=== PATIENT | female | born 1985 | race Caucasian/White ===

== ENCOUNTER 2024-04-27 11:28 | Emergency (ER) | payer OTHER ==
[2024-04-27 11:53] VITALS: BP 130/70; O2SAT 100
--- NOTE | 2024-04-27 12:14 | ED Physician Documentation ---
History of Present Illness - Stated complaint Stated Complaint: MED REFILL - Chief complaint Chief Complaint: General - History obtained from History obtained from: Patient - History of Present Illness Timing: Today Pain level max: 0 Pain level now: 0 - Additonal information Additional information: 38-year-old female recently moved to the [place]. Does not have a primary care provider. Out of her medications, requesting refills. Currently asymptomatic. PD PAST MEDICAL HISTORY - Past Medical History Past Medical History: Yes Psych: Depression, Anxiety - Past Surgical History Past Surgical History: No - Present Medications Home Medications: Ambulatory Orders Medication Instructions Recorded Confirmed Fluoxetine HCl [Prozac] 40 mg PO DAILY #30 cap 04/27/24 Gabapentin [Neurontin] 300 mg PO DAILY #30 cap 04/27/24 Quetiapine Fumarate [Seroquel Xr] 150 mg PO QPM #30 tab 04/27/24 cloNIDine [Catapres] 0.5 mg PO DAILY #150 tablet 04/27/24 - Allergies Allergies/Adverse Reactions: Allergies Allergy/AdvReac Type Severity Reaction Status Date / Time No Known Drug Allergies Allergy Verified 04/27/24 11:34 - Social History Does the pt smoke?: No Smoking Status: Never smoker Does the pt drink ETOH?: No Does the pt have substance abuse?: No - Immunizations Immunizations are current?: Yes PD ED PE NORMAL - Vitals Vital signs reviewed: Yes - General General: Alert and oriented X 3, No acute distress - HEENT HEENT: Moist mucous membranes - Derm Derm: Warm and dry - Neuro Neuro: Alert and oriented X 3 Results - Vitals Vitals: Vital Signs - 24 hr 04/27/24 11:34 Temperature 36.7 C Heart Rate 89 Respiratory 16 Rate Blood Pressure 130/70 O2 Saturation 100 PD Medical Decision Making - ED course Complexity details: considered differential, d/w patient ED course: Medication refills given to the patient. No emergency medical condition at this time. Recommend she follow-up with the walk-in clinic if she is unable to do establish with a PCP. This document was made in part using voice recognition software. While efforts are made to proofread this document, sound alike and grammatical errors may occur. Departure - Departure Disposition: 01 Home, Self Care Clinical Impression: Medication refill Condition: Good Follow-Up: Primary/Walk In [place] [Provider Group] [facility] [place] [Provider Group] [facility] [place] [Provider Group] [facility] [place] [Provider Group] Prescriptions: cloNIDine [Catapres] 0.5 mg PO DAILY #150 tablet Gabapentin [Neurontin] 300 mg PO DAILY #30 cap Fluoxetine HCl [Prozac] 40 mg PO DAILY #30 cap Quetiapine Fumarate [Seroquel Xr] 150 mg PO QPM #30 tab Comments: Your prescriptions were sent to [facility] in [place]. Please follow-up with your doctor for further care. Alternatively you can follow-up with the walk-in clinics as well for any further medication refill. Forms: PCP List
== END 2024-04-27 12:15 | disposition home or self-care (01) ==
LOC: ED 11:28
DX: Z76.0 Encounter for issue of repeat prescription (principal); F32.A Depression, unspecified; F41.9 Anxiety disorder, unspecified
CPT/HCPCS: 99281; 99282

== ENCOUNTER 2024-09-26 01:07 | Observation (INO) ==
[2024-09-26 01:33] LABS: BASOPHILS % (AUTO) 0.4 %; EOSINOPHILS % (AUTO) 0.1 %; HCT - HEMATOCRIT 32.7 % (37.0-47.0); HGB - HEMOGLOBIN 11.1 g/dL (12.0-16.0); LYMPHOCYTES # (AUTO) 1.4 10^3/uL (1.5-3.5); LYMPHOCYTES % (AUTO) 17.3 %; MEAN CORPUSCULAR HEMOGLOBIN 30.3 pg (27.0-31.0); MEAN CORPUSCULAR HGB CONC 33.9 g/dL (32.0-36.0); MEAN CORPUSCULAR VOLUME 89.3 fL (81.0-99.0); MEAN PLATELET VOLUME 8.8 fL (7.9-10.8); MONOCYTES # (AUTO) 0.4 10^3/uL (0.0-1.0); MONOCYTES % (AUTO) 5.4 %; NEUTROPHILS % (AUTO) 76.7 %; PLT - PLATELET COUNT 175 10^3/uL (130-450); RED BLOOD COUNT 3.66 10^6/uL (4.20-5.40); RED CELL DISTRIBUTION WIDTH 12.7 % (12.0-15.0); WHITE BLOOD COUNT 7.8 x10^3/uL (4.8-10.8)
[2024-09-26 01:50] LABS: MAGNESIUM 1.6 mg/dL (1.7-2.3)
[2024-09-26 01:52] LABS: BILIRUBIN,URINE NEGATIVE (NEGATIVE); GLUCOSE, URINE (UA) NEGATIVE (NEGATIVE); KETONES,URINE (UA) TRACE mg/dL (NEGATIVE); LEUKOCYTE ESTERASE, URINE NEGATIVE (NEGATIVE); NITRITE,URINE NEGATIVE (NEGATIVE); OCCULT BLOOD,URINE NEGATIVE (NEGATIVE); PROTEIN,URINE TRACE mg/dL (NEGATIVE); UROBILINOGEN,URINE 0.2 (NORMAL) E.U./dL (NORMAL)
[2024-09-26 01:55] LABS: CLARITY,URINE CLEAR (CLEAR); HCG UR QUAL NEGATIVE
[2024-09-26 01:57] LABS: ACETAMINOPHEN 0.2 ug/mL; ALBUMIN 3.5 g/dL (3.2-5.5); ALBUMIN/GLOBULIN RATIO 1.3 (1.0-2.2); ALKALINE PHOSPHATASE 55 IU/L (42-121); ALT ALANINE AMINOTRANSFERASE 30 IU/L (10-60); AST ASPARTATE AMINOTRANSFERASE 57 IU/L (10-42); BILIRUBIN,TOTAL 0.5 mg/dL (0.2-1.0); BUN - BLOOD UREA NITROGEN 7 mg/dL (6-20); CALCIUM 8.5 mg/dL (8.5-10.3); CARBON DIOXIDE - CO2 26 mmol/L (21-32); CHLORIDE 106 mmol/L (101-111); CREATININE 0.6 mg/dL (0.6-1.3); ETOH - ETHANOL < 10.0 mg/dL; GFR - MDRD 112 (>89); GLUCOSE 107 mg/dL (74-104); LIPASE 15 U/L (11-82); POTASSIUM 2.9 mmol/L (3.5-4.5); SODIUM 141 mmol/L (135-145); TOTAL PROTEIN 6.1 g/dL (6.4-8.9)
[2024-09-26 02:03] LABS: THYROID STIMULATING HORMONE 3.53 uIU/mL (0.34-5.60)
[2024-09-26 02:04] LABS: AMPHETAMINE SCREEN,URINE POSITIVE (NEGATIVE); BARBITURATE SCREEN,UR NEGATIVE (NEGATIVE); BENZODIAZEPINES SCREEN, URINE POSITIVE (NEGATIVE); BUPRENORPHINE SCREEN, URINE NEGATIVE (NEGATIVE); COCAINE SCREEN URINE NEGATIVE (NEGATIVE); METHADONE SCREEN, URINE NEGATIVE (NEGATIVE); METHAMPHETAMINES SCREEN, URINE POSITIVE (NEGATIVE); OPIATE SCREEN, URINE NEGATIVE (NEGATIVE); OXYCODONE SCREEN, URINE NEGATIVE (NEGATIVE); THC CANNABINOID SCREEN, URINE POSITIVE (NEGATIVE); TRICYCLIC ANTIDEPRESSANT,URINE POSITIVE (NEGATIVE)
[2024-09-26 02:11] LABS: CK- CREATINE KINASE 2906 IU/L (30-223)
[2024-09-26 02:12] LABS: SALICYLATE < 1.5 mg/dL
--- NOTE | 2024-09-26 03:02 | ED Physician Documentation ---
History of Present Illness Stated complaint Stated Complaint: HALLUCINATIONS Chief complaint Chief Complaint: MHE History obtained from History obtained from: Patient Additonal information Additional information: 39yF with pmh bipolar and anxiety, seen here yesterda, presents with AMS tonight, stating she is having visual hallucinations. further history limited by patient ams Meds/Allgy Home Medications Ambulatory Orders Medication Instructions Recorded Confirmed hydroxyzine HCl 25 mg tablet 25 mg PO TID PRN anxiety #20 tabs 09/25/24 09/26/24 quetiapine 200 mg tablet (Seroquel) 200 mg PO DAILY #14 tabs 09/25/24 09/26/24 Allergies Allergies Allergy/AdvReac Type Severity Reaction Status Date / Time sulfamethoxazole (From Allergy Intermediate Rash Verified 09/26/24 01:29 Bactrim) trimethoprim (From Bactrim) Allergy Intermediate Rash Verified 09/26/24 01:29 [facility] Medical History Medical History (Updated 09/26/24 @ 03:[address] MD) Acute delirium Depression Bipolar 1 disorder Social History Social History (Updated 09/24/24 @ 10:54 by Eliezer Elena RN) Smoking Status: Never smoker Do you vape?: Yes Living arrangement: At home Living Condition: With family Relationship: Level: Independent Do you feel safe in your home environment?: Yes Suffered physical, verbal, emotional, or financial abuse?: No History of Abuse: No Frequency: Occasional Substance Use: cannabis (any form) POLST Patient has POLST: No Exam Constitutional normal general appearance, no apparent distress and average body habitus HENMT normocephalic and head/scalp atraumatic Eyes PERRL Neck/C-Spine visual inspection normal Respiratory breath sounds equal bilaterally, normal respiratory effort and clear to auscultation bilaterally Cardiovascular normal heart rate noted and regular rhythm noted Gastrointestinal abdomen normal to inspection Psychiatry bizarre affect Results Vitals Vitals: Vital Signs - 24 hr 09/25/24 13:01 09/26/24 01:10 09/26/24 02:39 Temperature 37.1 C 36.4 C L Temperature Source Temporal Artery Scan Temporal Artery Scan Pulse Rate 128 H 114 H Respiratory Rate 18 16 Blood Pressure 126/91 H 141/102 H O2 Saturation 94 94 O2 Source Room air Room air Room air Pain Intensity 0 0 0 Oxygen O2 Source Room air Labs Labs: Laboratory Tests 09/26/24 09/26/24 01:24 01:26 WBC 7.8 RBC 3.66 L Hgb 11.1 L Hct 32.7 L MCV 89.3 MCH 30.3 MCHC 33.9 RDW 12.7 Plt Count 175 MPV 8.8 Neut # (Auto) 6.0 Lymph # (Auto) 1.4 L Dicks[place] # (Auto) 0.4 Eos # (Auto) 0.0 Baso # (Auto) 0.0 Absolute Nucleated RBC 0.00 Nucleated RBC % 0.0 Sodium 141 Potassium 2.9 L Chloride 106 Carbon Dioxide 26 Anion Gap 9.0 BUN 7 Creatinine 0.6 Estimated GFR (MDRD) 112 Glucose 107 H Calcium 8.5 Magnesium 1.6 L Total Bilirubin 0.5 AST 57 H ALT 30 Alkaline Phosphatase 55 Total Creatine Kinase 2906 H* Total Protein 6.1 L Albumin 3.5 Globulin 2.6 Albumin/Globulin Ratio 1.3 Lipase 15 TSH 3.53 Urine Color YELLOW Urine Clarity CLEAR Urine pH 6.0 Ur Specific [place] 1.025 Urine Protein TRACE Urine Glucose (UA) NEGATIVE Urine Ketones TRACE Urine Occult Blood NEGATIVE Urine Nitrite NEGATIVE Urine Bilirubin NEGATIVE Urine Urobilinogen 0.2 (NORMAL) Ur Leukocyte Esterase NEGATIVE Ur Microscopic Review NOT INDICATED Urine Culture Comments NOT INDICATED Urine HCG, Qual NEGATIVE Salicylates < 1.5 Urine Opiates Screen NEGATIVE Ur Buprenorphine Scrn NEGATIVE Ur Oxycodone Screen NEGATIVE Urine Methadone Screen NEGATIVE Acetaminophen 0.2 Ur Barbiturates Screen NEGATIVE Ur Tricyclics Screen POSITIVE H Ur Phencyclidine Scrn NEGATIVE Ur Amphetamine Screen POSITIVE H U Methamphetamines Scrn POSITIVE H U Benzodiazepines Scrn POSITIVE H Urine Cocaine Screen NEGATIVE U Cannabinoids Screen POSITIVE H Ur Drug Screen Comment CUTOFF CONC BELOW: Ethyl Alcohol < 10.0 PD Medical Decision Making ED course ED course: 39yF p/w acute rhabdomyloisis in setting of meth use with concurrent ams/visual hallucinations. patient also hypokalemic. plan to admit for fluids and electrolyte replacement. Discharge Plan Discharge Patient Disposition: 66 [facility] DC/Xfer Condition: Stable Clinical Impression: Methamphetamine use, Visual hallucinations, Rhabdomyolysis Prescriptions: No Action quetiapine [Seroquel] 200 mg tablet 200 mg PO DAILY Qty: 14 0RF hydroxyzine HCl 25 mg tablet 25 mg PO TID PRN (Reason: anxiety) Qty: 20 0RF Print Language: Maltese Stand Alone Forms: PCP List
[2024-09-26] MEDS ORDERED: BENZONATATE 100 MG CAPSULE PO PRN (03:46)
[2024-09-26] MEDS ORDERED: MORPHINE 10 MG/ML VIAL IVP PRN (03:46)
--- NOTE | 2024-09-26 03:51 | HISTORY & PHYSICAL EXAMINATION ---
Chief Complaint Chief Complaint Chief Complaint: ams / confusion History of Present Illness History Obtained From Records Reviewed: ed charting History obtained from: ed charting and ed staff Exam Limitations: IT cart connection issues - please refer to ed charting for further details History of Present Illness HPI Comment/Other: pt with h/o bipolar and anxiety presents with visual hallucinations and ams. limited details d/t ams. h/o meth, bzd, cannabis usage. Review of Systems per ed charting [facility] Medical History Medical History (Updated 09/26/24 @ 03:[address] MD) Acute delirium Depression Bipolar 1 disorder Social History Social History (Updated 09/24/24 @ 10:54 by Eliezer Elena RN) Smoking Status: Never smoker Do you vape?: Yes Living arrangement: At home Living Condition: With family Relationship: Level: Independent Do you feel safe in your home environment?: Yes Suffered physical, verbal, emotional, or financial abuse?: No History of Abuse: No Frequency: Occasional Substance Use: cannabis (any form) POLST Patient has POLST: No Meds/Allgy Home Medications Ambulatory Orders Medication Instructions Recorded Confirmed hydroxyzine HCl 25 mg tablet 25 mg PO TID PRN anxiety #20 tabs 09/25/24 09/26/24 quetiapine 200 mg tablet (Seroquel) 200 mg PO DAILY #14 tabs 09/25/24 09/26/24 Allergies Allergies Allergy/AdvReac Type Severity Reaction Status Date / Time sulfamethoxazole (From Allergy Intermediate Rash Verified 09/26/24 01:29 Bactrim) trimethoprim (From Bactrim) Allergy Intermediate Rash Verified 09/26/24 01:29 Conclusion/Plan Problem List (1) Rhabdomyolysis: (2) Visual hallucinations: (3) Psychosis: Plan pt with - - rhabdomyolysis in setting of polysubstance abuse + volume depletion preserved renal function IVF, monitor CK levels - hypomagnesemia + hypokalemia in setting of rhabdomyolysis + drug abuse replete - toxic, metabolic encephalopathy drug abuse + bipolar daron monitor for now continue home meds neuro checks no focal deficits at this time - polysubstance abuse contributory to above further complicated by co-morbid bipolar + anxiety will benefit from drug rehab / counseling f/u labs, neuro checks, ck further orders per clinical course Lab Results 09/26/24 01:26 09/26/24 01:26
[2024-09-26] MEDS: SODIUM CHLORIDE 0.9% 500 ML IV ONE ×2 (04:00→12:42)
[2024-09-26] MEDS: LORazepam 2 MG/ML VIAL IVP STA (04:07)
[2024-09-26] MEDS ORDERED: MAGNESIUM SULFATE 2 GRAM 2 GM/50 ML BAG IV ONE (04:09)
[2024-09-26 04:15] LABS: BASOPHILS % (AUTO) 0.3 %; EOSINOPHILS % (AUTO) 0.3 %; HCT - HEMATOCRIT 32.5 % (37.0-47.0); HGB - HEMOGLOBIN 10.9 g/dL (12.0-16.0); LYMPHOCYTES # (AUTO) 1.4 10^3/uL (1.5-3.5); LYMPHOCYTES % (AUTO) 19.5 %; MEAN CORPUSCULAR HEMOGLOBIN 30.5 pg (27.0-31.0); MEAN CORPUSCULAR HGB CONC 33.5 g/dL (32.0-36.0); MEAN PLATELET VOLUME 9.8 fL (7.9-10.8); MONOCYTES # (AUTO) 0.4 10^3/uL (0.0-1.0); MONOCYTES % (AUTO) 5.3 %; NEUTROPHILS # (AUTO) 5.5 10^3/uL (1.5-6.6); NEUTROPHILS % (AUTO) 74.5 %; PLT - PLATELET COUNT 181 10^3/uL (130-450); RED BLOOD COUNT 3.57 10^6/uL (4.20-5.40); RED CELL DISTRIBUTION WIDTH 12.7 % (12.0-15.0); WHITE BLOOD COUNT 7.3 x10^3/uL (4.8-10.8)
[2024-09-26] MEDS: POTASSIUM CHLOR 10 MEQ/100 ML 10 MEQ/100 ML BAG IV STA (04:16)
[2024-09-26] MEDS: MAGNESIUM SULFATE 2 GRAM 2 GM/50 ML BAG IV ONE (04:30)
[2024-09-26 04:38] LABS: ALBUMIN 3.4 g/dL (3.2-5.5); ALBUMIN/GLOBULIN RATIO 1.5 (1.0-2.2); ALKALINE PHOSPHATASE 54 IU/L (42-121); ALT ALANINE AMINOTRANSFERASE 28 IU/L (10-60); AST ASPARTATE AMINOTRANSFERASE 53 IU/L (10-42); BILIRUBIN,TOTAL 0.5 mg/dL (0.2-1.0); BUN - BLOOD UREA NITROGEN 6 mg/dL (6-20); CALCIUM 8.3 mg/dL (8.5-10.3); CARBON DIOXIDE - CO2 26 mmol/L (21-32); CHLORIDE 106 mmol/L (101-111); CHOL/HDL RATIO 3.2 (<4.4); CHOLESTEROL 204 mg/dL; CREATININE 0.5 mg/dL (0.6-1.3); GFR - MDRD 139 (>89); GLUCOSE 103 mg/dL (74-104); HDL CHOLESTEROL 63 mg/dL; LDL CHOLESTEROL,CALCULATED 106 mg/dL; LDL/HDL RATIO 1.7 (<4.4); MAGNESIUM 1.8 mg/dL (1.7-2.3); POTASSIUM 2.9 mmol/L (3.5-4.5); SODIUM 139 mmol/L (135-145); TOTAL PROTEIN 5.7 g/dL (6.4-8.9); TRIGLYCERIDES 173 mg/dL; VLDL CHOLESTEROL 35 mg/dL
[2024-09-26] MEDS: POTASSIUM CHLORIDE 20 MEQ/15 ML UDC PO STA (04:40)
[2024-09-26 04:46] LABS: THYROID STIMULATING HORMONE 3.34 uIU/mL (0.34-5.60)
[2024-09-26] MEDS: LORazepam 1 MG TABLET PO STA (05:05)
[2024-09-26] MEDS: KETOROLAC 15 MG/ML VIAL IVP STA ×2 (05:06→12:50)
[2024-09-26] MEDS: traZODone 50 MG TABLET PO STA (06:35)
[2024-09-26] MEDS: ACETAMINOPHEN 325 MG TABLET PO PRN (08:32)
[2024-09-26] MEDS: MULTIVITAMIN W/MINERALS TABLET PO SCH (08:32)
[2024-09-26] MEDS ORDERED: LACTATED RINGERS 1,000 ML IV SCH (09:00)
[2024-09-26] MEDS: ASCORBIC ACID 500 MG TABLET PO SCH (09:30)
[2024-09-26] MEDS: LACTOBACILLUS RHAMNOSUS GG CAPSULE PO SCH (09:30)
[2024-09-26] MEDS: POTASSIUM CHLORIDE 20 MEQ TABLET PO STA (09:30)
[2024-09-26] MEDS: SODIUM CHLORIDE 0.9% 1,000 ML IV SCH (09:31)
[2024-09-26] MEDS: LORazepam 2 MG/ML VIAL IVP PRN (09:31)
[2024-09-26] MEDS: POTASSIUM CHLOR 10 MEQ/100 ML 10 MEQ/100 ML BAG IV SCH (09:32)
[2024-09-26] MEDS: QUEtiapine 100 MG TABLET PO SCH (09:35)
[2024-09-26 11:11] LABS: ESTIMATED AVERAGE GLUCOSE 91 mg/dL (70-100); HEMOGLOBIN A1c% 4.8 % (4.27-6.07)
[2024-09-26] MEDS: HALOPERIDOL 5 MG/ML VIAL IVP ONE ×2 (12:42→18:45)
[2024-09-26] MEDS: diazePAM INJ 5 MG/ML SYRINGE IVP ONE (12:42)
--- NOTE | 2024-09-26 13:01 | PHARMACY PROGRESS NOTE ---
Best Possible Medication History Admit Date and Time: 09/26/24 0346 Home Medications Medication Instructions Recorded Confirmed Type hydroxyzine HCl 25 mg tablet 25 mg PO TID PRN anxiety #20 tabs 09/25/24 09/26/24 Rx quetiapine 200 mg tablet (Seroquel) 250 mg PO DAILY 09/26/24 09/26/24 History Processed by: Nursing Medications reviewed in ED?: Yes Medication History completed: Yes Patient Interview: Pt unable to participate [facility] Statement: As the person ultimately responsible for medication therapy, providers are able to order a medication from an existing home medication list in [facility] via the "Reconcile Routine" prior to Confirmation of that medication by network support specialist. Such practice is discouraged except when the physician, in their clinical judgment, deems that a medical need exists for a medication without regard to previous use.
[2024-09-26] MEDS ORDERED: diazePAM INJ 5 MG/ML SYRINGE IVP PRN (16:47)
[2024-09-26] MEDS: NICOTINE 21 MG PATCH TOP SCH (18:45)
[2024-09-26] MEDS: MORPHINE 2 MG/ML CARPUJECT IVP STA (18:51)
[2024-09-27] MEDS: hydrOXYzine PAMOATE 25 MG CAPSULE PO PRN (01:45)
[2024-09-27] MEDS: IBUPROFEN 400 MG TABLET PO PRN (01:45)
[2024-09-27 05:35] LABS: HCT - HEMATOCRIT 32.2 % (37.0-47.0); HGB - HEMOGLOBIN 10.5 g/dL (12.0-16.0); MEAN CORPUSCULAR HEMOGLOBIN 29.9 pg (27.0-31.0); MEAN CORPUSCULAR HGB CONC 32.6 g/dL (32.0-36.0); MEAN CORPUSCULAR VOLUME 91.7 fL (81.0-99.0); MEAN PLATELET VOLUME 10.2 fL (7.9-10.8); RED BLOOD COUNT 3.51 10^6/uL (4.20-5.40); RED CELL DISTRIBUTION WIDTH 12.9 % (12.0-15.0); WHITE BLOOD COUNT 8.1 x10^3/uL (4.8-10.8)
[2024-09-27 05:56] LABS: CALCIUM 7.9 mg/dL (8.5-10.3); CREATININE 0.5 mg/dL (0.6-1.3); POTASSIUM 3.7 mmol/L (3.5-4.5)
[2024-09-27] MEDS: SODIUM CHLORIDE 0.9% 500 ML IV ONE (07:46)
[2024-09-27] MEDS: KETOROLAC 15 MG/ML VIAL IVP STA ×2 (09:24→16:42)
--- NOTE | 2024-09-27 10:25 | PROVIDER PROGRESS NOTE ---
Subjective Subjective Subjective: Today, patient is much more cooperative and calm. She understands that she may need an inpatient psychiatric stay. She is motivated to get better. She states that she was 5 years sober from methamphetamine use, but due to recent moves, and life changes, she relapsed. She said she only smoked meth for 2 days. She would like to quit. Yesterday, she was much more agitated. She really wanted to leave and vape outside. She was explained that she cannot do this. She was given nicotine patch which seems to resolve some of her withdrawal symptoms. Current Medications Current Medications Current Medications: Current Medications Generic Name Dose Route Start Last Admin Trade Name Freq PRN Reason Stop Dose Admin Acetaminophen 325 mg 09/26/24 03:48 09/26/24 08:32 Acetaminophen 325 Mg Tablet PO 325 mg Q4H PRN Administration pain, fever Ascorbic Acid 500 mg 09/26/24 09:00 09/27/24 08:04 Ascorbic Acid 500 Mg Tablet PO 500 mg DAILY ANDREA Administration Benzonatate 100 mg 09/26/24 03:46 Benzonatate 100 Mg Capsule PO TID PRN Cough Diazepam 5 mg 09/26/24 16:47 Diazepam Inj 5 Mg/Ml Syringe IVP 09/27/24 16:46 ONCE PRN Agitation Hydroxyzine Pamoate 25 mg 09/26/24 03:45 09/27/24 01:45 Hydroxyzine Pamoate 25 Mg Capsule PO 25 mg TID PRN Administration anxiety Ibuprofen 400 mg 09/26/24 19:00 09/27/24 07:46 Ibuprofen 400 Mg Tablet PO 400 mg Q6HR PRN Administration Moderate Pain (Level 4-6) Lactobacillus Rhamnosus 1 cap 09/26/24 09:00 09/27/24 08:04 Lactobacillus Rhamnosus Gg Capsule PO 1 cap DAILY ANDREA Administration Lorazepam 2 mg 09/26/24 07:23 09/27/24 07:46 Lorazepam 2 Mg/Ml Vial IVP 2 mg Q4HR PRN Administration Agitation Melatonin 3 mg 09/26/24 03:46 Melatonin 3 Mg Tablet PO QPM PRN sleep Multivitamins/Minerals 1 tab 09/26/24 08:00 09/27/24 07:46 Multivitamin W/Minerals Tablet PO 1 tab DAILYWM ANDREA Administration Nicotine 1 patch 09/26/24 19:00 09/27/24 08:04 Nicotine 21 Mg Patch TOP 1 patch DAILY ANDREA Administration Quetiapine Fumarate 50 mg 09/27/24 21:00 Quetiapine 25 Mg Tablet PO QPM ANDREA Quetiapine Fumarate 200 mg 09/27/24 21:00 Quetiapine 100 Mg Tablet PO QPM [facility] Objective Vital Signs/Intake & Output Reviewed Vital Signs: Yes Vital Signs: Vital Signs x48h Temp Pulse Resp BP Pulse Ox O2 Flow Rate 09/27/24 08:02 97.9 F 62 19 111/77 94 0 09/27/24 04:56 98.1 F 105 H 30 H 119/82 97 Intake & Output: Intake & Output 09/24/24 09/25/24 09/26/24 09/27/24 23:59 23:59 23:59 23:59 Intake Total 2221 / 2221 780 / 780 Balance 2221 780 / 780 Weight (kg) 85 kg Objective General Appearance: positive No acute distress and Anxious Eyes Bilateral: positive Normal inspection, PERRL and EOMI ENT: positive ENT inspection nml, Pharynx nml and No signs of dehydration Neck: positive Nml inspection, Thyroid nml and No JVD Respiratory: positive Chest non-tender, No respiratory distress and Breath sounds nml; negative Wheezes, Rales or Rhonchi Cardiovascular: positive Regular rate & rhythm, No murmur and No gallop; negative Extrasystoles, Tachycardia, Systolic murmur or Diastolic murmur Abdomen: positive Non-tender, No organomegaly and Nml bowel sounds; negative Tenderness, Guarding, Hepatomegaly or Splenomegaly Back: positive Nml inspection; negative CVA tenderness (R) or CVA tenderness (L) Skin: positive Color nml, No rash, Warm, Dry, Cyanosis and Diaphoresis Extremities: positive Non-tender, Full ROM and Nml appearance Neurologic/Psychiatric: positive Oriented x3; negative Mood/affect nml (rushed speech, anxiety noted) Lab Results 09/27/24 04:33 09/27/24 04:33 Other Labs: Lab Results x24hrs 09/27/24 09/26/24 09/26/24 Range/Units 04:33 12:35 04:00 WBC 8.1 (4.8-10.8) x10^3/uL RBC 3.51 L (4.20-5.40) 10^6/uL Hgb 10.5 L (12.0-16.0) g/dL Hct 32.2 L (37.0-47.0) % MCV 91.7 (81.0-99.0) fL MCH 29.9 (27.0-31.0) pg MCHC 32.6 (32.0-36.0) g/dL RDW 12.9 (12.0-15.0) % Plt Count 195 (130-450) 10^3/uL MPV 10.2 (7.9-10.8) fL Sodium 136 (135-145) mmol/L Potassium 3.7 3.4 L (3.5-4.5) mmol/L Chloride 108 (101-111) mmol/L Carbon Dioxide 24 (21-32) mmol/L Anion Gap 4.0 L (6-13) BUN 9 (6-20) mg/dL Creatinine 0.5 L (0.6-1.3) mg/dL Estimated GFR (MDRD) 139 (>89) Glucose 94 (74-104) mg/dL Estimat Average Glucose 91 (70-100) mg/dL Hemoglobin A1c % 4.8 (4.27-6.07) % Calcium 7.9 L (8.5-10.3) mg/dL Total Creatine Kinase 980 H (30-223) IU/L Diagnostic Imaging Diagnostic Imaging Results: positive Final report reviewed Assessment/Plan Problem List (1) Rhabdomyolysis: Impression: Patient was initially very agitated, moving around a lot, running. As a result, her CPK was elevated. The highest it was on 09/24 was 5521. Today, it has downtrended to 802. Will give her 1 more bolus of IV fluids. After this, we will encourage oral rehydration. Advised to recheck a BMP and CPK in 1 week. At this time, she is medically cleared. Qualifiers: Rhabdomyolysis type: non-traumatic Qualified Code(s): M62.82 - Rhabdomyolysis (2) Visual hallucinations: Impression: Unclear if this is due to methamphetamine withdrawal versus acute psychosis in setting of her psych disorders which include schizoaffective disorder, ADD, borderline personality disorder. These are improving. On 09/24 when she was initially evaluated by telepsych, she was psychotic and manic. Initially, decision was made by DCR to detain the patient, and look for placement. Her mental status then improved. She was started on Seroquel 250 mg nightly. Will reorder telepsych eval today to determine her placement. (3) Psychosis: Impression: Patient was acutely psychotic initially. Has a history of schizoaffective disorder, ADD, borderline personality disorder. Continue Seroquel. Continue psychiatric care in the outpatient setting. Qualifiers: Psychosis type: schizoaffective disorder Schizoaffective disorder type: unspecified Qualified Code(s): F25.9 - Schizoaffective disorder, unspecified
[2024-09-27] MEDS: NICOTINE 7 MG PATCH TOP SCH (15:49)
--- NOTE | 2024-09-27 16:26 | TELEPSYCH PHYS NOTE ---
[facility] Telepsych Consult Consult Date: 09/27/24 Name of Referring Provider:: unknown Reason for Consult: A psych assessment was ordered Suicide Risk Sreening (ASQ Tool) In the past few weeks, have you wished you were ?: Yes In the past few weeks, have you felt that you or your family would be better off if you were ?: No In the past week, have you been having thoughts about killing yourself?: No Have you ever tried to kill yourself?: Yes Assessment Language: German Notes: ED NOTES 39-year-old female presents to emergency department acutely psychotic and manic. Patient is tremulous with very dilated pupils. Labs completed for further evaluation she appears to have an elevated CK of 1911 we attempted to give her some IV fluids she was willing to take oral Ativan to help with anxiety but ultimately somehow patient got a visitor as well as her backpack do not know how this happened this seemed to agitate and escalate patient's emotions which caused her to elope from the emergency department at 1257. Stat alert and code ER was called police were called and she was brought back into the emergency department around 1315 with police escort. Patient was not able to be redirected she was acutely psychotic attempting to still leave talking to different doors saying that her mom was in there and talking to people that were not in their extreme danger to herself as well as other patients. 4 point locked restraints initiated at 1320 as well as IM 2 mg Haldol and IM 25 mg Howard adryl ordered. Myself evaluated the patient at 1320 she is belligerent screaming. Talking to her mom and to stop calling CPS her mother is not here and CPS has not been involved for this ER visit at this point in time. Family members are not anymore at bedside and not allowed to be at bedside. Patient is in locked restraints and chemical restraints have been initiated. Now that patient is safe and in locked restraints because of her rhabdo and her elevation of her CK we are starting IV fluids and patient placed on monitor because of the Haldol Benadryl and Ativan. Patient continues to scream at staff. Patient was evaluated by DCR and ultimately a decision was made to detain the patient after DCR spoke with patient's mother gather more collateral information mother says that she does not feel like she can safely care for the patient if she were to return home. She is attempted to run away from home twice now andWas also found down in significant rhabdo today. Original CK level was at 1900 11 repeat CK was done 6 hours later and it has actually significantly increased to 5521. Patient has received a total of 3 L lactated ringer 1 L normal saline she has not produced any urine for us thus far. 2108 patient became significantly agitated I attempted to talk to the patient And inform her of what the plan was moving forward To help with de-escalation and patient became quite agitated she appears to be more delusional. We informed the patient that because she was detained if she tried to leave the hospital that she would be restrained again patient said that she did not care she would leave the hospital AGAINST MEDICAL ADVICE and she would rip out her IV and attempt to run away. Because of this the decision was made to chemically restrain the patient she was given 2 mg Haldol, 25 mg IV Benadryl and 1 mg IV Ativan to help with calming patient down. 2152 patient much more home after receiving 2 mg Haldol, 25 mg IV Benadryl, and 1 mg IV Ativan. Chief Complaint: Psychiatric Assessment History of Present Illness: 39 year old female with stated history of schizoaffective disorder, borderline PD, and ADHD presents today for evaluation. She's not willing to be very honest about drug use so having a trav discussion to figure out best next steps is very difficult. She reported using a 'little' meth 6 days ago. She feels that meth could have played a small part in what occurred to her. She recounts hiding and running in the [place] and remembers being quite paranoid. She is no longer paranoid. She is not manic, psychotic, depressed, suicidal or homicidal. She is not taking her psychiatric medications. She smokes THC daily. She does not use alcohol. She denies history of violence or any legal problems. She's living with her , mother, father, and child. She recently moved from [place]. She has had 'five to ten' suicide attempts in her lifetime and over 20 inpatient admissions. She reports that at baseline she will say she doesn't want to live, but denies recent plan/intent to end her life. No neurovegetative symptoms reported. Family history includes aunt with schizophrenia, father with depression and alcoholism, and another aunt with psychosis. Suicide Ideation - Homicide Ideation - Self Harm: Denies SI/Denies HI Psychiatric History - Treatment History: 20 plus IP admissions No current mental health outpatient services Community Resources Accessed: ED Family Psych History/ History of suicide: Family history includes aunt with schizophrenia, father with depression and alcoholism, and another aunt with psychosis Medication & Allergies Ambulatory Orders Medication Instructions Recorded Confirmed hydroxyzine HCl 25 mg tablet 25 mg PO TID PRN anxiety #20 tabs 09/25/24 09/26/24 quetiapine 200 mg tablet (Seroquel) 250 mg PO DAILY 09/26/24 09/26/24 Allergies Allergy/AdvReac Type Severity Reaction Status Date / Time sulfamethoxazole (From Allergy Intermediate Rash Verified 09/26/24 01:29 Bactrim) trimethoprim (From Bactrim) Allergy Intermediate Rash Verified 09/26/24 01:29 Drug & Alcohol History Use: Uses substance without health or social issues: Amphetamine and Cannabis Use Issues: Intoxication, Delirium, Delusions, Hallucinations, Perceptual Disturbance and Psychosis Personal Information Does the patient have a history or present tendencies for violence?: None Medical History Psychiatric: reports Depression and Anxiety Family & Social History Family History Comment/Other: No known family history of SMI or suicide Living Situation: With family Mental Status Exam Appearance and Attire: Casually groomed; hospital attire Attitude and Behavior: Evasive Speech: Normal rate, volume, and quantity Affect and Mood: Neutral mood; she is smiling Association and Thought Process: Linear and organized Thought Content: Denies delusions/paranoia, SI, or HI Perception: Denies AVH Sensorium, memory and orientation: Alert and oriented x 3; memory intact Intellectual - Cognitive functioning: Average Insight and Judgement: Fair/intact Emotional and Behavioral Functioning: No agitation Ability to Self-Care: WNL Personal Goals Short-term Goals: Resume mental health treatment Risk/Protective Factors Risk Factors: Substance intoxication or withdrawal Protective Factors / Internal: Identifies reasons for living Protective Factors / External: Responsibility to children, Supportive social network of family or friends and Positive therapeutic relationships Plan Impression/Risk Assessment: 39 year old female with history of schizoaffective disorder, borderline PD, meth induced psychosis, and cannabis use disorder presents today for evlaluation. Psychosis has resolved. She is not manic, psychotic, suicidal or homicidal. She is minimizing the role that meth played in her presentation to the ED. It's not really clear how much she uses. She does not meet criteria for inpatient psychiatric admission. Treatment - Therapy Recommendations: Referral to outpatient psychiatry Referral to outpatient mental health counseling Referral to outpatient substance abuse treatment Return to ED with psychosis, daron, SI or HI Please give her the 988 hotline number information Pharmacological Recommendations: Defer to outpatient team Problem List (1) Rhabdomyolysis: Qualifiers: Rhabdomyolysis type: non-traumatic Qualified Code(s): M62.82 - Rhabdomyolysis (2) Visual hallucinations: (3) Psychosis: Qualifiers: Psychosis type: schizoaffective disorder Schizoaffective disorder type: unspecified Qualified Code(s): F25.9 - Schizoaffective disorder, unspecified (4) Psychotic disorder due to psychoactive substance: Time Spent & Provider Location Telepsych consultation conducted via videoconferencing: Yes List names and roles of persons who participated in consult: self/patient Telepsych Provider Location: Home office Time Spent (Minutes): 35 PFSH Medical History Medical History (Updated 09/27/24 @ 16:21 by VENUS Caro) Acute delirium Depression Bipolar 1 disorder Social History Social History (Updated 09/24/24 @ 10:54 by Eliezer Elena RN) Smoking Status: Current every day smoker Number of Years Smoked: 5 Second hand tobacco smoke exposure: Yes Do you vape?: Yes Living arrangement: At home Living Condition: With family Relationship: Level: Independent Do you feel safe in your home environment?: Yes Suffered physical, verbal, emotional, or financial abuse?: No History of Abuse: No Frequency: Occasional Substance Use: cannabis (any form) POLST Patient has POLST: No
--- NOTE | 2024-09-27 17:15 | Discharge Summary ---
Discharge Summary Admit Date: 09/26/24 Discharge Date: 09/28/24 Discharging Provider: Dr. Ivonne Mittal Code Status: Attempt Resuscitation DIAGNOSES Admission Diagnoses: Rhabdomyolysis Hypomangesemia Hypokalemia Acute toxic metabolic encephalopathy Polysubstance abuse Discharge Diagnoses with Status of Each Condition: Rhabdomyolysisresolved. Received IV fluids. Continue to encourage oral hydration. Visual hallucinationsresolved. Methamphetamine usepatient came in with severe methamphetamine use and withdrawal resulting in agitation, hallucinations. Now resolved. Psychosisacute psychosis has resolved. However patient remains emotionally labile, very anxious, very depressed. No thoughts of homicidal or suicidal ideation at this time. Telepsych consulted, do recommend inpatient psych placement. [facility] has accepted the patient. will drive her over. This is a voluntary admission. HPI History of Present Illness: Per Dr. Louis: pt was able to be seen and evaluated via video further hx details - pt states she lives at home with parents and her daughter. she has been using "substances" over past couple of days and drank etoh, and has been seeing things that are not there - specifically individuals looking into the house, and at one point she felt she had followed them [place]. she drinks occasionally and vapes. works in [employer] - 14 pt review done with positives per hpi; all others reviewed as negative exam gen - awake, alert, oriented, able to recall details and able to orient to present situation and reality. polite heent - eomi, nc/at heart - per ed charting lungs - no resp distress abd - soft, nt ext - no acute trauma noted or reported psych - flat affect, states currently not hallucinating CONSULTS | PROCEDURES Consultations: Telepsych, Social Work HOSPITAL COURSE Hospital Course: Patient is a 39-year-old female with a history of methamphetamine use, borderline personally disorder, ADD, schizoaffective disorder, bipolar type who presented initially due to agitation. ER documentation was reviewed patient was found with dilated pupils, extremely anxious, tremulous, with paranoia and hallucinations. Initially, she attempted to elope from the emergency room. She was chemically and physically restrained, per DCR reccomendations. Telepsych had initially suggested inpatient psychiatric placement, which at that time would be involuntary. Her CPK was found to be elevated in the 5000 range. As such, she was deemed suitable for medical admission and need for medical clearance prior to going to the psych hospital. She received IVF and this downtrened to 800. She was medically cleared. Over the next day and a half, her acute psychosis did resolve. It is hard to tell how much of this is attributed to her methamphetamine use and withdrawal. However, she does have a long history of schizoaffective disorder. Telepsych did reevaluate the patient; the first provider stated that she would qualify for outpatient psychiatric treatment. However, this was reviewed with a second provider, and they stated that she would qualify for inpatient treatment. She will be [facility] with 250 mg of Seroquel nightly. Her will drive her over as a voluntary admission. Patient, patient's were both spoken with, and are agreeable to the plan. ALLERGIES Allergies Allergy/AdvReac Type Severity Reaction Status Date / Time sulfamethoxazole (From Allergy Intermediate Rash Verified 09/26/24 01:29 Bactrim) trimethoprim (From Bactrim) Allergy Intermediate Rash Verified 09/26/24 01:29 MEDICATIONS Ambulatory Orders Medication Instructions Recorded Confirmed hydroxyzine HCl 25 mg tablet 25 mg PO TID PRN anxiety #20 tabs 09/25/24 09/26/24 quetiapine 200 mg tablet (Seroquel) 250 mg PO DAILY 09/26/24 09/26/24 PHYSICAL EXAM AT DISCHARGE General Appearance: positive Moderate distress and Anxious Eyes Bilateral: positive Normal inspection, PERRL and EOMI ENT: positive ENT inspection nml, Pharynx nml and No signs of dehydration Neck: positive Nml inspection, Thyroid nml and No JVD Respiratory: positive Chest non-tender, No respiratory distress and Breath sounds nml; negative Wheezes, Rales or Rhonchi Cardiovascular: positive Regular rate & rhythm, No murmur, No gallop and Tachycardia; negative Systolic murmur or Diastolic murmur Peripheral Pulses: positive 2+ Abdomen: positive Non-tender, No organomegaly and Nml bowel sounds; negative Rebound, Hepatomegaly or Splenomegaly Back: positive Nml inspection; negative CVA tenderness (R) or CVA tenderness (L) Skin: positive Color nml, No rash, Warm and Dry Extremities: positive Non-tender, Full ROM, Nml appearance and No pedal edema Neurologic/Psychiatric: positive Oriented x3 and Depressed mood/affect; negative Mood/affect nml (Tearfull, emotionally labile, very anxious) LABS 12/20/24 04:33 09/27/24 04:33 DIAGNOSTIC IMAGING Diagnostic Imaging Results: Final report reviewed FOLLOW UP Follow Up: Follow up with PCP (list provided, does not have a PCP at this time). TIME SPENT Time Spent in Discharge (Minutes): 45 Discharge Plan Discharge Patient Disposition: 65 Psych Hosp/Unit DC/Xfer Condition: Stable Prescriptions: Continued hydroxyzine HCl 25 mg tablet 25 mg PO TID PRN (Reason: anxiety) Qty: 20 0RF quetiapine [Seroquel] 200 mg tablet 250 mg PO DAILY Diet: Regular Health Concerns: You came in because you were seeing things and not acting like yourself. This is likely due to your underlying mental health disorders, but it was also due to your methamphetamine use and withdrawal. I would highly advise that you abstain from using this. This will make your mental health disorders worse as well as exacerbate further withdrawals. While you were here, telepsych spoke with you twice. They recommended that you continue Seroquel 250 mg at night. They recommend inpatient psych treatment, which is where we'll be sending you. We are glad you are feeling a little better; we hope you continue to feel better and your medication regimen is optimized for you at [facility]. Thank you for allowing us to take care of you. Care Plan Goals: 1. Stop using methamphetamine or any other illicit substances at home. This will worsen your underlying mental health disorders. 2. Follow-up with a psychiatrist and/or counseling. 3. Follow-up with a primary care physician. [place] 4. Take your Seroquel 250 mg every night. Print Language: Polish Patient Instructions: Abuse Meth Abuse and Addiction, Addiction Drug Abuse Tx Stand Alone Forms: PCP List
[2024-09-27] MEDS ORDERED: diazePAM 5 MG TABLET ONE (19:17)
[2024-09-27] MEDS: diazePAM 5 MG TABLET PO SCH (19:19)
[2024-09-27] MEDS: MELATONIN 3 MG TABLET PO PRN (20:51)
[2024-09-27] MEDS: QUEtiapine 25 MG TABLET PO SCH (20:51)
[2024-09-27] MEDS: QUEtiapine 100 MG TABLET PO SCH (20:51)
[2024-09-27] MEDS: LORazepam 1 MG TABLET PO PRN (23:11)
--- NOTE | 2024-09-28 01:42 | PROVIDER PROGRESS NOTE ---
[employer] Sales Associate Note Fine [employer]ry Sales Associate Note Fine [employer] Sales Associate Note: RN paged " Pt in for hallucinations. Pt c/o heart burn and is requesting something for that like tums. Pt is also requesting additional medication for anxiety" patient here for polysubstance abuse exacerbating underlying psychiatric disorders. ordered tums and atarax Dae Hutchison
[2024-09-28] MEDS: CALCIUM CARBONATE CHEW 500 MG TABLET PO PRN (01:57)
[2024-09-28] MEDS: hydrOXYzine PAMOATE 25 MG CAPSULE PO PRN (01:58)
[2024-09-28 04:44] VITALS: TEMP 98.1
--- NOTE | 2024-09-28 09:23 | PROVIDER PROGRESS NOTE ---
Subjective Subjective Subjective: Today, patient is much more cooperative and calm. She understands that she may need an inpatient psychiatric stay. She is motivated to get better. She states that she was 5 years sober from methamphetamine use, but due to recent moves, and life changes, she relapsed. She said she only smoked meth for 2 days. She would like to quit. Yesterday, she was much more agitated. She really wanted to leave and vape outside. She was explained that she cannot do this. She was given nicotine patch which seems to resolve some of her withdrawal symptoms. Current Medications Current Medications Current Medications: Current Medications Generic Name Dose Route Start Last Admin Trade Name Freq PRN Reason Stop Dose Admin Acetaminophen 325 mg 09/26/24 03:48 09/28/24 04:38 Acetaminophen 325 Mg Tablet PO 325 mg Q4H PRN Administration pain, fever Ascorbic Acid 500 mg 09/26/24 09:00 09/28/24 09:17 Ascorbic Acid 500 Mg Tablet PO 500 mg DAILY ANDREA Administration Benzonatate 100 mg 09/26/24 03:46 Benzonatate 100 Mg Capsule PO TID PRN Cough Calcium Carbonate/Glycine 1,000 mg 09/28/24 01:39 09/28/24 01:57 Calcium Carbonate Chew 500 Mg Tablet PO 1,000 mg TID PRN Administration Heartburn Diazepam 5 mg 09/27/24 21:00 09/27/24 20:52 Diazepam 5 Mg Tablet PO Not Given QPM ANDREA Hydroxyzine Pamoate 25 mg 09/26/24 03:45 09/27/24 22:41 Hydroxyzine Pamoate 25 Mg Capsule PO 25 mg TID PRN Administration anxiety Hydroxyzine Pamoate 50 mg 09/28/24 01:40 09/28/24 09:17 Hydroxyzine Pamoate 25 Mg Capsule PO 50 mg TID PRN Administration anxiety Ibuprofen 400 mg 09/26/24 19:00 09/27/24 15:48 Ibuprofen 400 Mg Tablet PO 400 mg Q6HR PRN Administration Moderate Pain (Level 4-6) Lactobacillus Rhamnosus 1 cap 09/26/24 09:00 09/28/24 09:17 Lactobacillus Rhamnosus Gg Capsule PO 1 cap DAILY ANDREA Administration Lorazepam 5 mg 09/27/24 17:49 09/28/24 05:11 Lorazepam 1 Mg Tablet PO 5 mg Q6H PRN Administration Anxiety Melatonin 3 mg 09/26/24 03:46 09/27/24 20:51 Melatonin 3 Mg Tablet PO 3 mg QPM PRN Administration sleep Multivitamins/Minerals 1 tab 09/26/24 08:00 09/28/24 09:18 Multivitamin W/Minerals Tablet PO 1 tab DAILYWM ANDREA Administration Nicotine 1 patch 09/26/24 19:00 09/28/24 09:18 Nicotine 21 Mg Patch TOP 1 patch DAILY ANDREA Administration Nicotine 1 patch 09/27/24 16:00 09/28/24 09:18 Nicotine 7 Mg Patch TOP 1 patch DAILY ANDREA Administration Quetiapine Fumarate 50 mg 09/27/24 21:00 09/27/24 20:51 Quetiapine 25 Mg Tablet PO 50 mg QPM ANDREA Administration Quetiapine Fumarate 200 mg 09/27/24 21:00 09/27/24 20:51 Quetiapine 100 Mg Tablet PO 200 mg QPM ANDREA Administration Objective Vital Signs/Intake & Output Reviewed Vital Signs: Yes Vital Signs: Vital Signs x48h Temp Pulse Resp BP Pulse Ox 09/28/24 05:14 105 H 133/94 H 09/28/24 04:42 98.1 F 103 H 20 140/100 H 96 Intake & Output: Intake & Output 09/25/24 09/26/24 09/27/24 09/28/24 23:59 23:59 23:59 23:59 Intake Total 2222 / 2222 1316 / 1316 Balance 2222 / 2222 1316 / 1316 Weight (kg) 85 kg Objective General Appearance: positive No acute distress and Anxious Eyes Bilateral: positive Normal inspection, PERRL and EOMI ENT: positive ENT inspection nml, Pharynx nml and No signs of dehydration Neck: positive Nml inspection, Thyroid nml and No JVD Respiratory: positive Chest non-tender, No respiratory distress and Breath sounds nml; negative Wheezes, Rales or Rhonchi Cardiovascular: positive Regular rate & rhythm, No murmur and No gallop; negative Extrasystoles, Tachycardia, Systolic murmur or Diastolic murmur Abdomen: positive Non-tender, No organomegaly and Nml bowel sounds; negative Tenderness, Guarding, Hepatomegaly or Splenomegaly Back: positive Nml inspection; negative CVA tenderness (R) or CVA tenderness (L) Skin: positive Color nml, No rash, Warm, Dry, Cyanosis and Diaphoresis Extremities: positive Non-tender, Full ROM and Nml appearance Neurologic/Psychiatric: positive Oriented x3; negative Mood/affect nml (rushed speech, anxiety noted) Lab Results 09/27/24 04:33 09/27/24 04:33 Other Labs: Lab Results x24hrs 09/27/24 Range/Units 12:23 Total Creatine Kinase 802 H (30-223) IU/L Diagnostic Imaging Diagnostic Imaging Results: positive Final report reviewed Assessment/Plan Problem List (1) Rhabdomyolysis: Impression: Patient was initially very agitated, moving around a lot, running. As a result, her CPK was elevated. The highest it was on 09/24 was 5521. Today, it has downtrended to 802. Will give her 1 more bolus of IV fluids. After this, we will encourage oral rehydration. Advised to recheck a BMP and CPK in 1 week. At this time, she is medically cleared. Qualifiers: Rhabdomyolysis type: non-traumatic Qualified Code(s): M62.82 - Rhabdomyolysis (2) Visual hallucinations: Impression: Unclear if this is due to methamphetamine withdrawal versus acute psychosis in setting of her psych disorders which include schizoaffective disorder, ADD, borderline personality disorder. These are improving. On 09/24 when she was initially evaluated by telepsych, she was psychotic and manic. Initially, decision was made by DCR to detain the patient, and look for placement. Her mental status then improved. She was started on Seroquel 250 mg nightly. Will reorder telepsych eval today to determine her placement. (3) Psychosis: Impression: Patient was acutely psychotic initially. Has a history of schizoaffective disorder, ADD, borderline personality disorder. Continue Seroquel. Continue psychiatric care in the outpatient setting. Qualifiers: Psychosis type: schizoaffective disorder Schizoaffective disorder type: unspecified Qualified Code(s): F25.9 - Schizoaffective disorder, unspecified (4) Psychotic disorder due to psychoactive substance:
[2024-09-28] MEDS: LORazepam 1 MG TABLET PO ONE (13:53)
--- NOTE | 2024-09-28 14:38 | PROVIDER PROGRESS NOTE ---
Subjective Subjective Subjective: Yesterday evening, when patient was informed that the initial psychiatric evaluation deemed that she was suitable for outpatient psychiatric care, she was frustrated. She expressed feelings of feeling like she was going to relapse if she was just prescribed Seroquel. She was asking about her ADD medications, including Vyvanse. and daughter were also at bedside, they expressed frustration as well. Patient then became very emotionally labile, was very tearful. Psychiatric provider was spoken with again; this time, they recommended inpatient psych treatment. This was voluntary treatment, and as such patient could leave if she decided not to pursue this. This morning, she was accepted at [facility] for as early as today. However, the insurance website was down, and they were having difficulty verifying her insurance, and as such, her discharge may be delayed. Overall, she is still very anxious, and cries on occasion. She has no muscle pain. She denies any fevers or chills. She denies any homicidal or suicidal ideation. Current Medications Current Medications Current Medications: Current Medications Generic Name Dose Route Start Last Admin Trade Name Freq PRN Reason Stop Dose Admin Acetaminophen 325 mg 09/26/24 03:48 09/28/24 04:38 Acetaminophen 325 Mg Tablet PO 325 mg Q4H PRN Administration pain, fever Ascorbic Acid 500 mg 09/26/24 09:00 09/28/24 09:17 Ascorbic Acid 500 Mg Tablet PO 500 mg DAILY ANDREA Administration Benzonatate 100 mg 09/26/24 03:46 Benzonatate 100 Mg Capsule PO TID PRN Cough Calcium Carbonate/Glycine 1,000 mg 09/28/24 01:39 09/28/24 01:57 Calcium Carbonate Chew 500 Mg Tablet PO 1,000 mg TID PRN Administration Heartburn Diazepam 5 mg 09/27/24 21:00 09/27/24 20:52 Diazepam 5 Mg Tablet PO Not Given QPM ANDREA Hydroxyzine Pamoate 25 mg 09/26/24 03:45 09/27/24 22:41 Hydroxyzine Pamoate 25 Mg Capsule PO 25 mg TID PRN Administration anxiety Hydroxyzine Pamoate 50 mg 09/28/24 01:40 09/28/24 09:17 Hydroxyzine Pamoate 25 Mg Capsule PO 50 mg TID PRN Administration anxiety Ibuprofen 400 mg 09/26/24 19:00 09/27/24 15:48 Ibuprofen 400 Mg Tablet PO 400 mg Q6HR PRN Administration Moderate Pain (Level 4-6) Lactobacillus Rhamnosus 1 cap 09/26/24 09:00 09/28/24 09:17 Lactobacillus Rhamnosus Gg Capsule PO 1 cap DAILY ANDREA Administration Lorazepam 5 mg 09/27/24 17:49 09/28/24 11:09 Lorazepam 1 Mg Tablet PO 5 mg Q6H PRN Administration Anxiety Melatonin 3 mg 09/26/24 03:46 09/27/24 20:51 Melatonin 3 Mg Tablet PO 3 mg QPM PRN Administration sleep Multivitamins/Minerals 1 tab 09/26/24 08:00 09/28/24 09:18 Multivitamin W/Minerals Tablet PO 1 tab DAILYWM ANDREA Administration Nicotine 1 patch 09/26/24 19:00 09/28/24 09:18 Nicotine 21 Mg Patch TOP 1 patch DAILY ANDREA Administration Nicotine 1 patch 09/27/24 16:00 09/28/24 09:18 Nicotine 7 Mg Patch TOP 1 patch DAILY ANDREA Administration Quetiapine Fumarate 50 mg 09/27/24 21:00 09/27/24 20:51 Quetiapine 25 Mg Tablet PO 50 mg QPM ANDREA Administration Quetiapine Fumarate 200 mg 09/27/24 21:00 09/27/24 20:51 Quetiapine 100 Mg Tablet PO 200 mg QPM ANDREA Administration Objective Vital Signs/Intake & Output Reviewed Vital Signs: Yes Vital Signs: Vital Signs x48h Temp Pulse Resp BP Pulse Ox O2 Flow Rate 09/27/24 08:02 97.9 F 62 19 111/77 94 0 09/27/24 04:56 98.1 F 105 H 30 H 119/82 97 Intake & Output: Intake & Output 09/25/24 09/26/24 09/27/24 09/28/24 23:59 23:59 23:59 23:59 Intake Total 2221 / 2222 1316 / 1316 Balance 2221 / 2221 1316 / 1316 Weight (kg) 85 kg Objective General Appearance: positive No acute distress and Anxious Eyes Bilateral: positive Normal inspection, PERRL and EOMI ENT: positive ENT inspection nml, Pharynx nml and No signs of dehydration Neck: positive Nml inspection, Thyroid nml and No JVD Respiratory: positive Chest non-tender, No respiratory distress and Breath sounds nml; negative Wheezes, Rales or Rhonchi Cardiovascular: positive Regular rate & rhythm, No murmur and No gallop; negative Extrasystoles, Tachycardia, Systolic murmur or Diastolic murmur Abdomen: positive Non-tender, No organomegaly and Nml bowel sounds; negative Tenderness, Guarding, Hepatomegaly or Splenomegaly Back: positive Nml inspection; negative CVA tenderness (R) or CVA tenderness (L) Skin: positive Color nml, No rash, Warm, Dry, Cyanosis and Diaphoresis Extremities: positive Non-tender, Full ROM and Nml appearance Neurologic/Psychiatric: positive Oriented x3; negative Mood/affect nml (rushed speech, anxiety noted) Lab Results 09/27/24 04:33 09/27/24 04:33 Other Labs: Lab Results x24hrs 09/27/24 09/26/24 09/26/24 Range/Units 04:33 12:35 04:00 WBC 8.1 (4.8-10.8) x10^3/uL RBC 3.51 L (4.20-5.40) 10^6/uL Hgb 10.5 L (12.0-16.0) g/dL Hct 32.2 L (37.0-47.0) % MCV 91.7 (81.0-99.0) fL MCH 29.9 (27.0-31.0) pg MCHC 32.6 (32.0-36.0) g/dL RDW 12.9 (12.0-15.0) % Plt Count 195 (130-450) 10^3/uL MPV 10.2 (7.9-10.8) fL Sodium 136 (135-145) mmol/L Potassium 3.7 3.4 L (3.5-4.5) mmol/L Chloride 108 (101-111) mmol/L Carbon Dioxide 24 (21-32) mmol/L Anion Gap 4.0 L (6-13) BUN 9 (6-20) mg/dL Creatinine 0.5 L (0.6-1.3) mg/dL Estimated GFR (MDRD) 139 (>89) Glucose 94 (74-104) mg/dL Estimat Average Glucose 91 (70-100) mg/dL Hemoglobin A1c % 4.8 (4.27-6.07) % Calcium 7.9 L (8.5-10.3) mg/dL Total Creatine Kinase 980 H (30-223) IU/L Diagnostic Imaging Diagnostic Imaging Results: positive Final report reviewed Assessment/Plan Problem List (1) Rhabdomyolysis: Impression: Patient was initially very agitated, moving around a lot, running. As a result, her CPK was elevated. The highest it was on 09/24 was 5521. Has downtrended to 802. Will encourage oral rehydration. Refused blood draw today. Advised to recheck a BMP and CPK in 1 week. At this time, she is medically cleared. Qualifiers: Rhabdomyolysis type: non-traumatic Qualified Code(s): M62.82 - Rhabdomyolysis (2) Visual hallucinations: Impression: Unclear if this is due to methamphetamine withdrawal versus acute psychosis in setting of her psych disorders which include schizoaffective disorder, ADD, borderline personality disorder. These are improving. On 09/24 when she was initially evaluated by telepsych, she was psychotic and manic. Initially, decision was made by DCR to detain the patient, and look for placement. Her mental status then improved. She was started on Seroquel 250 mg nightly. [facility] - [facility] on [facility]. Patient, both agreeable to plan. (3) Psychosis: Impression: Patient was acutely psychotic initially. Has a history of schizoaffective disorder, ADD, borderline personality disorder. Continue Seroquel. Qualifiers: Psychosis type: schizoaffective disorder Schizoaffective disorder type: unspecified Qualified Code(s): F25.9 - Schizoaffective disorder, unspecified
[2024-09-28 16:12] VITALS: BP 128/95
[2024-09-28 17:07] VITALS: O2SAT 95
== END 2024-09-28 17:05 ==
LOC: ED 01:07 → MS3 01:07 → MS2 14:37
PROVIDERS: ADMIT Student in an Organized Health Care Education/Training Program; ATTEND Student in an Organized Health Care Education/Training Program